=== PATIENT | female | born 1985 | race Caucasian/White ===

== ENCOUNTER 2017-02-27 08:07 | Inpatient (IN) | payer BC ==
[~2017-02-27] VITALS: Ht 160 cm; Wt 89.3 kg
[2017-02-27] VITALS (24 sets, daily range): BP systolic 110–139; BP diastolic 56–85
[~2017-02-27 08:07] MED LIST: ENDOCET 5-3251 EACH PO; FOLIC ACID0.4 MG PO; IBUPROFEN800 MG PO; MULTIPLE VITAM1 EAC4 PO; PRENATAL TABLE1 EAC3 PO; SYNTHROID75 MCG PO; ZYRTEC10 M2 PO
[2017-02-27 09:36] LABS: EOSINOPHIL (%) 0.1 % (0-5); HEMATOCRIT 38.2 % (36.0-46.0); IMMATURE GRANULOCYTE (%) 0.8 % (0.0-0.7); IMMATURE GRANULOCYTE COUNT 0.1 K/uL; INSTRUMENT ABS NEUTROPHIL CT 7.1 K/uL; LYMPHOCYTE COUNT 1.3 K/uL (1.0-2.8); MCH 26.2 PG (29.0-34.0); MCHC 31.9 G/DL (30.0-36.0); MEAN PLAT.VOLUME 11.2 uM^3 (9.5-12.4); MONOCYTE (%) 6.3 % (3-12); MONOCYTE COUNT 0.6 K/uL (0-0.8); NEUTROPHIL (%) 78.2 % (45-76); NEUTROPHIL COUNT 7.1 K/uL (1.8-6.4); PLATELET COUNT 124 K/uL (156-360); RBC DIS.WIDTH-CV 15.2 % (11.8-14.6); RBC DIS.WIDTH-SD 45.1 % (39-53); RED BLOOD COUNT 4.66 M/uL (3.80-5.20); WHITE BLOOD COUNT 9.1 K/uL (4.1-10.2)
[2017-02-27] MEDS ORDERED: IBUPROFEN800 MG PO (17:19)
== END 2017-02-28 20:14 | disposition home or self-care (01) | DRG 775 ==
LOC: LDRP-OP 08:07 → 2WEST 08:08 → LDRP-OP 03-26 10:01
PROVIDERS: Advanced Practice Midwife
DX: O70.0 First degree perineal laceration during delivery (principal); O69.81X0 Labor and delivery complicated by cord around neck, without compression, not applicable or unspecified; O99.284 Endocrine, nutritional and metabolic diseases complicating childbirth; E03.9 Hypothyroidism, unspecified; Z3A.40 40 weeks gestation of pregnancy; Z37.0 Single live birth; Z86.32 Personal history of gestational diabetes
CPT/HCPCS: 85025; C1755; J3010; J7120

== ENCOUNTER → 2017-03-01 | Outpatient (CLI) | payer BC | END | disposition home or self-care (01) | LOC: LAC 12:00 | DX: Z39.1 Encounter for care and examination of lactating mother (principal); O92.79 Other disorders of lactation; O92.03 Retracted nipple associated with lactation | CPT/HCPCS: G0463 ==